=== PATIENT | female | born 1980 | race Caucasian/White ===

== ENCOUNTER → 2016-08-24 | Outpatient (CLI) | payer OTHER ==
[~2016-08-24] MED LIST: ASPI-435 PO; CRS/10 PO; GLC850 PO; IBUP-1050 PO; MELO7.5T5 PO
== END | disposition home or self-care (01) ==
LOC: C.LAB 15:27
PROVIDERS: ATTEND Family Medicine
DX: S61.239A Puncture wound without foreign body of unspecified finger without damage to nail, initial encounter (principal); X58.XXXA Exposure to other specified factors, initial encounter

== ENCOUNTER → 2016-12-04 | Day surgery (SDC) | payer OTHER ==
[2016-11-30 15:29] VITALS: BMI 36.0
[~2016-12-04] VITALS: Ht 162.6 cm; Wt 95.5 kg
[~2016-12-04] MED LIST changes: -ASPI-435 PO; -CRS/10 PO; -IBUP-1050 PO; +LIDOCAINE HCL 2% 2 ML VIAL (20MG/ML) ONE; -MELO7.5T5 PO; +MIDAZOLAM HCL 1 MG/ML 2ML VIAL ONE; +ONDANSETRON INJ 2 MG/ML 2 ML VIAL IV PRN; +ONDANSETRON INJ 2 MG/ML 2 ML VIAL ONE; +PROPOFOL IV EMULSION 10 MG/ML 20 ML VIAL IV ONE
[2016-12-04 10:35] VITALS: Ht 162.6 cm; Wt 95.5 kg
--- NOTE | 2016-12-04 11:05 | Endo History and Physical ---
History & Physical Date of Service: Dec 04, 2016. Chief Complaint: abdominal pain and diarrhea Referring Physician: Dr. Bella History of Present Illness The patient presents for colonoscopy today. She has a history of recurrent constipation and diarrhea which is been ongoing for 1-2 years. She denies having any hematochezia but does have her rectal tenderness. Her surgical history is notable for a , cholecystectomy, appendectomy, and tubal ligation. There is no family history of stomach cancer, colon cancer or inflammatory bowel disease. Past Surgical History Hx Cardiac Surgery: No Hx Internal Defibrillator: No Hx Pacemaker: No Hx Abdominal Surgery: Yes (YAEL, LAP APPY, , D&C) Hx of Implantable Prosthesis: No Hx Post-Op Nausea and Vomiting: No Hx Cancer Surgery: Yes (MOHS FOR BCC) Hx Thoracic Surgery: No Hx Orthopedic: Yes (RT KNEE ARTHROSCOPY) Hx Urinary Tract Surgery: No Family History None Social History Smoking Status: Never Smoker Hx Substance Use: No Hx Alcohol Use: No Allergies Coded Allergies: Bacitracin (Unverified Allergy, Intermediate, REDNESS, 12/04/16) Enoxaparin (Verified Allergy, Mild, HIVES AND ITCHING AT INJECTION SITE, ) Sulfa Antibiotics (Verified Allergy, Unknown, PETICHIA, 12/04/16) Current Medications Reported Home Medications Medications Dose Route/Sig Max Daily Dose Days Date Category Metformin HCl 850 Mg Tab 850 Mg PO BID 11/06/14 Reported Vital Signs Weight (Kilograms): 95.45 Height (Feet): 5 Height (Inches): 4 Date Time Temp Pulse Resp B/P (MAP) Pulse Ox O2 Delivery O2 Flow Rate FiO2 12/04/16 10:41 37.1 88 18 133/78 (96) 97 Room Air Physical Exam General Appearance: no apparent distress Abdomen: Inspection & Palpation: soft Assessment and Plan Patient referred for colonoscopy to evaluate left-sided abdominal discomfort and alteration of bowel habits. Based on the history with suspect her symptoms are related to irritable bowel syndrome. We are to perform a colonoscopy today for evaluation of symptoms to determine if she may have evidence of inflammatory bowel disease.
--- NOTE | 2016-12-04 11:40 | GI REPORT ---
Procedure Date: 12/04/2016 11:19 AM Procedure: Colonoscopy Indications: Screening for colorectal malignant neoplasm, Incidental change in bowel habits noted Medicines: Monitored Anesthesia Care Complications: No immediate complications. Estimated blood loss: Minimal. Estimated Blood Loss: Estimated blood loss was minimal. Procedure: Pre-Anesthesia Assessment: - Prior to the procedure, a History and Physical was performed, and patient medications, allergies and sensitivities were reviewed. The patient's tolerance of previous anesthesia was reviewed. - The risks and benefits of the procedure and the sedation options and risks were discussed with the patient. All questions were answered and informed consent was obtained. - Patient identification and proposed procedure were verified prior to the procedure by the physician, the nurse and the systems analyst developer. The procedure was verified in the procedure room. - Pre-procedure physical examination revealed no contraindications to sedation. - ASA Grade Assessment: II - A patient with mild systemic disease. - After reviewing the risks and benefits, the patient was deemed in satisfactory condition to undergo the procedure. - The anesthesia plan was to use monitored anesthesia care (MAC). - Immediately prior to administration of medications, the patient was re-assessed for adequacy to receive sedatives. - The heart rate, respiratory rate, oxygen saturations, blood pressure, adequacy of pulmonary ventilation, and response to care were monitored throughout the procedure. - The physical status of the patient was re-assessed after the procedure. After I obtained informed consent, the scope was passed under direct vision. Throughout the procedure, the patient's blood pressure, pulse, and oxygen saturations were monitored continuously. The Scope was introduced through the anus and advanced to the terminal ileum. The colonoscopy was performed without difficulty. The patient tolerated the procedure well. The quality of the bowel preparation was good. Findings: The perianal and digital rectal examinations were normal. Pertinent negatives include normal sphincter tone. The terminal ileum appeared normal. Normal mucosa was found in the entire colon. Fluid aspiration was performed through the scope suction channel. Sample(s) were sent for bacterial cultures, Clostridium difficile and ova and parasites. Biopsies for histology were taken with a cold forceps from the entire colon for evaluation of microscopic colitis. Estimated blood loss was minimal. Internal hemorrhoids were found during retroflexion. The hemorrhoids were mild. The exam was otherwise without abnormality. Impression: - The examined portion of the ileum was normal. - Normal mucosa in the entire examined colon. Fluid aspiration performed. Biopsied. - Internal hemorrhoids. - The examination was otherwise normal. Recommendation: - Discharge patient to home (ambulatory). - Advance diet as tolerated today. - Repeat colonoscopy age 49 for screening purposes. - Symptoms likely related to IBS or perhaps Metformin. - Try Florastor 250 mg twice daily. - If symptoms persist would suggest stopping Metformin Buzz Arguelles D.O. Buzz Arguelles, 12/04/2016 11:40:06 AM This report has been signed electronically. Note Initiated On: 12/04/2016 11:19 AM I attest to the content of the Intraoperative Record and orders documented therein, exceptions below
--- NOTE | 2016-12-04 11:42 | Discharge Instructions ---
Endoscopy Patient Instructions Date / Procedure(s) Performed Dec 04, 2016. Colonoscopy Allergy Information Coded Allergies: Bacitracin (Unverified Allergy, Intermediate, REDNESS, 12/04/16) Enoxaparin (Verified Allergy, Mild, HIVES AND ITCHING AT INJECTION SITE, ) Sulfa Antibiotics (Verified Allergy, Unknown, PETICHIA, 12/04/16) Discharge Date / Findings Dec 04, 2016. Internal hemorrhoids Normal-appearing colonic mucosa Medication Instructions Reported Home Medications Medications Dose Route/Sig Max Daily Dose Days Date Category Metformin HCl 850 Mg Tab 850 Mg PO BID 11/06/14 Reported Provider Instructions Activity Restrictions - No exercising or heavy lifting for 24 hours. - Do not drink alcohol the day of the procedure. - Do not drive a car or operate machinery until the day after the procedure. - Do not make any important decisions or sign important papers in 24 hours after the procedure. Following Day: - Return to full activity which may include returning to work/school. Diet Start your diet with liquids and light foods (jello, soup, juice, toast). Then eat your usual diet if not nauseated. Treatment For Common After Affects For mild abdominal pain, bloating, or excessive gas: - Rest - Eat lightly - Lie on right side Follow-Up Information Follow-up with Dr. Bella as scheduled Try Floraster twice daily for 6-8 weeks If symptoms persist would consider stopping metformin Anesthesia Information What You Should Know You have had a procedure that required some medicine to reduce anxiety and discomfort. This treatment is called moderate sedation. After receiving the treatment, you may be sleepy, but you will be able to breathe on your own. The effects of the treatment may last for several hours. Follow these instructions along with Activity/Diet recommendations noted above: * Do NOT do anything where dizziness or clumsiness would be dangerous. * Rest quietly at home today, then you can be up and about tomorrow. * Have a responsible person stay with you the rest of today. * You may have had an I.V. today. If so, you may take the dressing off later today. Recommendations Call your doctor if: * Trouble breathing * Continuous vomiting for more than 24 hours * Temperature above 101 degrees * Severe abdominal pain or bloating * Pain not relieved by pain medicine ordered * There is increased drainage or redness from any incision * A large amount of rectal bleeding greater than 2-3 tablespoons. (If you had a polyp/s removed or have hemorrhoids, a small amount of blood - from the rectum is to be expected.) * You have any unanswered questions or concerns. IN THE EVENT OF A SERIOUS EMERGENCY, GO TO THE NEAREST EMERGENCY ROOM Your discharge instructions were prepared by provider Buzz Arguelles. Patient Instructions Signature Page Lizbeth Dev Patient (or Guardian) Signature/Date: I have read and understand the instructions given to me by my caregivers. Caregiver/RN/Doctor Signature/Date: The above-named patient and/or guardian has received patient instructions on this date. + Original Patient Signature Page (only) stays with chart. Please make copy for patient.
--- NOTE | 2016-12-04 12:00 | Anesthesiology Progress Note ---
Anesthesia Post Op Note Date & Time Dec 04, 2016 at 12:00 Vital Signs Pain Intensity: 0 Vital Signs Past 12 Hours Date Time Temp Pulse Resp B/P (MAP) Pulse Ox O2 Delivery O2 Flow Rate FiO2 12/04/16 11:53 82 18 135/99 (111) 99 Room Air 12/04/16 11:38 88 18 108/62 (77) 98 Room Air 12/04/16 10:41 37.1 88 18 133/78 (96) 97 Room Air Notes Mental Status: alert / awake / arousable, participated in evaluation Pt Amnestic to Procedure: Yes Nausea / Vomiting: adequately controlled Pain: adequately controlled Airway Patency, RR, SpO2: stable & adequate BP & HR: stable & adequate Hydration State: stable & adequate Anesthetic Complications: no major complications apparent
[2016-12-04 12:10] VITALS: BP 136/89; PULSE 85; O2SAT 99
[2016-12-08 14:41] LABS: CRYPTOSPORIDIUM AG TC 37213 NOT DETECTED (NOT DETECTED); ISOSPORA+CYCLOSPORA NOT DETECTED (NOT DETECTED); O&P GIARDIA AG NOT DETECTED (NOT DETECTED)
== END | disposition home or self-care (01) ==
LOC: C.GI 10:16
PROVIDERS: ATTEND Internal Medicine Gastroenterology
DX: Z12.11 Encounter for screening for malignant neoplasm of colon (principal); R19.7 Diarrhea, unspecified; R19.4 Change in bowel habit; K64.8 Other hemorrhoids; K63.89 Other specified diseases of intestine

== ENCOUNTER → 2017-03-05 | Outpatient (CLI) | payer OTHER ==
[~2017-03-05] MED LIST changes: -LIDOCAINE HCL 2% 2 ML VIAL (20MG/ML) ONE; -MIDAZOLAM HCL 1 MG/ML 2ML VIAL ONE; -ONDANSETRON INJ 2 MG/ML 2 ML VIAL IV PRN; -ONDANSETRON INJ 2 MG/ML 2 ML VIAL ONE; -PROPOFOL IV EMULSION 10 MG/ML 20 ML VIAL IV ONE
[2017-03-09 07:35] LABS: HEPATITIS C RNA TMA QUAL Not detected
== END | disposition home or self-care (01) ==
LOC: C.LAB 17:31
PROVIDERS: ATTEND Family Medicine
DX: S61.239A Puncture wound without foreign body of unspecified finger without damage to nail, initial encounter (principal); X58.XXXA Exposure to other specified factors, initial encounter; S69.91XD Unspecified injury of right wrist, hand and finger(s), subsequent encounter; X58.XXXD Exposure to other specified factors, subsequent encounter

== ENCOUNTER 2017-05-21 16:02 | Emergency (ER) | payer OTHER ==
[~2017-05-21] VITALS: Ht 162.6 cm; Wt 101.4 kg
[~2017-05-21 16:02] MED LIST changes: -GLC850 PO; +METF850T10 PO
[2017-05-21 16:27] VITALS: Ht 162.6 cm; Wt 101.4 kg
--- NOTE | 2017-05-21 17:13 | DIAGNOSTIC IMAGING REPORT ---
RIGHT THUMB 3 VIEWS HISTORY: metal FB right thumb - metal suture from OR COMPARISON: None. FINDINGS: There is no fracture or dislocation. Soft tissues are unremarkable. No radiopaque foreign bodies. IMPRESSION: No radiopaque foreign bodies within the thumb. Electronically signed by: Rodolfo Chandler M.D. 05/21/2017 5:12 PM Dictated Date/Time: 05/21/2017 5:11 PM
--- NOTE | 2017-05-21 17:27 | EMERGENCY ROOM VISIT NOTE ---
ED Visit Note First contact with patient: 16:33 CHIEF COMPLAINT: Finger laceration HISTORY OF PRESENT ILLNESS: This 36-year-old [id number] female patient presents to the emergency department approximately 4 hours after puncturing the medial aspect of the right thumb at work. The patient is an OR nurse, and was scrubbed in on a spine surgery. Dr. Montaño, the patient's attending, was removing metal sutures from a previous surgery. The patient believes that when she grabbed some sort of object, a piece of the metal suture pierced her glove and punctured her thumb. She states she immediately noticed the pain, and is now experiencing a foreign body sensation in the medial aspect of the right thumb. The bleeding has stopped. Denies weakness or numbness of the finger. The patient has full range of motion of the fingers. The patient rates the pain as minimal and 2/10 only with palpation. The patient denies any other injuries. The patient's tetanus shot is up to date. She did change gloves and clean with wound immediately with soap and water after the incident. REVIEW OF SYSTEMS: A 6 system review of systems was completed with positives and pertinent negatives listed in the HPI. ALLERGIES: Sulfa, Lovenox MEDICATIONS: Probiotic PMH: None SOCIAL HISTORY: The patient lives locally with family. She denies drug, alcohol , tobacco use. PHYSICAL EXAM: Vital Signs: Reviewed Nurse's notes, vital signs stable. GENERAL : This is a 36-year-old white female, in no acute distress, well developed, well nourished. SKIN: There is no obvious puncture wound or active bleeding on the medial aspect of the right thumb. The patient does report a foreign body sensation in that area, but I am unable to note the FB on palpation. Extension and flexion of the finger is full and strong. Full range of motion of the wrist and other fingers. Capillary refill less than 2 seconds. Normal sensation to light and sharp touch. RADIOLOGY: RIGHT THUMB 3 VIEWS HISTORY: metal FB right thumb - metal suture from OR COMPARISON: None. FINDINGS: There is no fracture or dislocation. Soft tissues are unremarkable. No radiopaque foreign bodies. IMPRESSION: No radiopaque foreign bodies within the thumb. Electronically signed by: Rodolfo Chandler M.D. 05/21/2017 5:12 PM Dictated Date/Time: 05/21/2017 5:11 PM EMERGENCY DEPARTMENT COURSE: I examined the patient. I contacted [employer] and discussed the case with them. This was deemed a significant exposure , so labs were drawn. behaview paperwork completed. X-ray was performed and reviewed by myself and radiologist as above. No obvious radiopaque foreign body noted on x-ray. I discussed the findings with the patient and reviewed the x-ray with her at bedside. The patient was given a Tdap booster. The patient was discharged home in good condition. I attest that I have personally reviewed the patient's current medication list. Patient was found to have normal blood pressure on screening and does not require follow-up. Differential diagnosis: Laceration, puncture wound, blood-borne pathogen exposure, fracture, contusion, strain or sprain, and others DIAGNOSIS: Needlestick injury, blood exposure Problem List Medical Problems: (1) Diabetes mellitus Status: Chronic Surgical Problems: (1) delivery delivered Status: Resolved (2) H/O section Status: Resolved (3) History of appendectomy Status: Resolved (4) Hx of appendectomy Status: Resolved (5) Hx of cholecystectomy Status: Resolved (6) Hx of dilation and curettage Status: Resolved (7) Hx of tubal ligation Status: Resolved (8) S/P tonsillectomy and adenoidectomy Status: Resolved Current/Historical Medications Scheduled Probiotic Product (Align), 4 MG PO DAILY Allergies Coded Allergies: Bacitracin (Verified Allergy, Intermediate, REDNESS, 05/21/17) Enoxaparin (Verified Allergy, Mild, HIVES AND ITCHING AT INJECTION SITE, ) Sulfa Antibiotics (Verified Allergy, Unknown, PETICHIA, 05/21/17) Vital Signs Date Time Temp Pulse Resp B/P (MAP) Pulse Ox O2 Delivery O2 Flow Rate FiO2 05/21/17 17:49 36.8 99 20 160/94 96 05/21/17 16:27 36.8 99 20 160/94 96 Room Air Medications Administered Medications (Trade) Dose Ordered Sig/Micah Route Start Time Stop Time Status Last Admin Dose Admin Diphtheria/ Pertussis/Tetanus Vacc (Adacel Inj) 0.5 ml ONCE ONCE IM. 05/21/17 17:30 05/21/17 17:31 DC 05/21/17 17:38 0.5 ML Departure Information Impression Primary Impression: Needle stick injury Additional Impression: Exposure to blood or body fluid Dispostion Home / Self-Care Condition GOOD Referrals Jojo Bella D.O. (PCP) Lala You Patient Instructions ED Body Fluid Exp HC Worker, Justine Numerate Cece [employer] Additional Instructions He was seen in the emergency department today for possible foreign body in the right thumb. As discussed, x-ray of the thumb did not show any signs of foreign body. Please keep the wound clean and dry with soap and water. Ibuprofen(Motrin, Advil) may be used for fever or pain. Use 400mg every six hours as needed. Take with food. Avoid using more than 2400mg in a 24 hour period. Do not use 2400mg per day for more than three consecutive days without physician direction. Prolonged inappropriate use can lead to stomach upset or ulcers. (AND/OR) Acetaminophen(Tylenol) may be used for fever or pain. Use 500mg every six hours as needed. Avoid using more than 3000mg in a 24 hour period. Follow-up with employee health as recommended. Return to the ED for worsening pain, redness, swelling, purulent drainage, fever , or other concerning symptoms. Problem Qualifiers
[2017-05-21] MEDS ORDERED: MISC4CAP PO (17:29)
[2017-05-21] MEDS ORDERED: DIPHTHERIA/TETANUS/PERTUSSIS 0.5 ML SYR/VIAL IM. ONE (17:30)
[2017-05-21 17:49] VITALS: BP 160/94; PULSE 99; TEMP 36.8; O2SAT 96
== END 2017-05-21 17:49 | disposition home or self-care (01) ==
LOC: C.EDB 16:02 → C.EDD 17:49
DX: S61.031A Puncture wound without foreign body of right thumb without damage to nail, initial encounter (principal); W46.1XXA Contact with contaminated hypodermic needle, initial encounter; Z77.21 Contact with and (suspected) exposure to potentially hazardous body fluids; Y92.234 Operating room of hospital as the place of occurrence of the external cause

== ENCOUNTER 2017-07-12 11:44 | Emergency (ER) | payer OTHER ==
[~2017-07-12] VITALS: Ht 162.6 cm; Wt 100.5 kg
[~2017-07-12 11:44] MED LIST changes: -METF850T10 PO; +MISC4CAP PO
[2017-07-12 12:04] VITALS: TEMP 36.6; Ht 162.6 cm; Wt 100.5 kg
--- NOTE | 2017-07-12 12:58 | EMERGENCY ROOM VISIT NOTE ---
History First contact with patient: 12:14 Chief Complaint: OTHER COMPLAINT Stated Complaint: SPRAYED IN FACE WITH BAG OF PTS FLUID History of Present Illness The patient is a 36 year old female who presents to the Emergency Room from the operating room with complaints of "spread and face with back of patient's fluid ". The patient states that earlier today around 10:58 AM she was working in the operating room when a bag of garbage can attached to an irrigation also which was inside the patient's shoulder for surgery sprayed her in the face, mouth and maybe even her eyes. She states that she immediately rinsed these regions. Source patient is known and this information was relayed to [employer] health. She notes that it is possible the nozzle was contaminated with blood/ synovial fluid from the patient. She was recommended to come here for evaluation. Tetanus is up-to-date. Review of Systems A complete 6-point Review of Systems was discussed with the patient, with pertinent positives and negatives listed in the History of Present Illness. All remaining Review of Systems questions can be considered negative unless otherwise specified. Past Medical/Surgical History Medical Problems: (1) Diabetes mellitus Surgical Problems: (1) delivery delivered (2) H/O section (3) History of appendectomy (4) Hx of appendectomy (5) Hx of cholecystectomy (6) Hx of dilation and curettage (7) Hx of tubal ligation (8) S/P tonsillectomy and adenoidectomy Family History Diabetes mellitus Hypertension Social History Smoking Status: Never Smoker Alcohol Use: none Marital Status: Housing Status: lives with family Occupation Status: employed Current/Historical Medications Scheduled Probiotic Product (Align), 4 MG PO DAILY Physical Exam Vital Signs Date Time Temp Pulse Resp B/P (MAP) Pulse Ox O2 Delivery O2 Flow Rate FiO2 07/12/17 13:28 90 18 151/104 97 07/12/17 12:04 36.6 92 18 139/86 95 Room Air Physical Exam VITAL SIGNS - Vital signs and nursing notes were reviewed. Stable. GENERAL -36-year-old female appearing her stated age who is in no acute distress. Communicates well with provider and answers questions appropriately. SKIN - Without rashes. No meningeal or petechial rash. No open lesions or lacerations to the face noted. Medical Decision & Procedures Medical Decision Patient was seen and evaluated as above in room D6. Review was performed of nursing notes and vital signs. After obtaining a thorough history and physical examination I did declare the exposure significant secondary to the possibility of blood/synovial fluid splashing her in the mouth and possibly her eyes. She was splashed in the face with potentially contaminated fluids from the patient' s blood/synovial fluid around 10:58 AM today. Source patient was identified and this information was then relayed to Ms. Lazrao Villa of [employer] health. Source patient as well as the exposed employee underwent baseline lab testing. Patient did complete/sign all appropriate paperwork. She was discharged to follow-up with employee health as well as occupational health. I did discuss with her benefit versus risk of initiating HIV prophylaxis at this time and decision was made to refrain until results are made available later today and in the event that they were not able to be resulted she would return for initiation of prophylaxis. The patient was educated upon management, had questions answered prior to discharge, and was discharged home in good condition. In the evaluation and treatment of this patient the following differential diagnoses were entertained: Significant exposure, nonsignificant exposure, among others. Impression Primary Impression: Exposure to blood or body fluid Departure Information Dispostion Home / Self-Care Condition GOOD Referrals Jojo Bella D.O. (PCP) Patient Instructions My [facility] Additional Instructions You were seen in the emergency department for exposure to body fluids while in the operating room. I do recommend at this time we deem this is as a significant exposure, and have drawn your as well as the source patient's baseline labs. You will be notified by employee health regarding the status/ results of the testing. Please call employee health/occupational health to schedule follow-up regarding your work-related injury. Please return with any new/concerning symptoms. Please call back here at [phone] for testing results if they do not call you by later this evening.
[2017-07-12 13:28] VITALS: BP 151/104; PULSE 90; O2SAT 97
== END 2017-07-12 13:28 | disposition home or self-care (01) ==
LOC: C.EDB 11:46 → C.EDD 13:28
DX: Z77.21 Contact with and (suspected) exposure to potentially hazardous body fluids (principal); E11.9 Type 2 diabetes mellitus without complications; Z83.3 Family history of diabetes mellitus; Z82.49 Family history of ischemic heart disease and other diseases of the circulatory system

== ENCOUNTER → 2017-11-02 | Outpatient (CLI) | payer OTHER | END | disposition home or self-care (01) | LOC: C.RDSM 15:00 | PROVIDERS: ATTEND Orthopaedic Surgery | DX: M79.606 Pain in leg, unspecified (principal); M25.561 Pain in right knee ==

== ENCOUNTER → 2017-11-13 | Outpatient (CLI) | payer OTHER ==
--- NOTE | 2017-11-13 16:39 | DIAGNOSTIC IMAGING REPORT ---
MRI OF THE RIGHT KNEE WITHOUT CONTRAST CLINICAL HISTORY: Effusion of right knee. Right knee pain and swelling following recent fall. Previous surgery. COMPARISON STUDY: MRI of the right knee December 16, 2015 and right knee radiographs November 02, 2017. TECHNIQUE: Utilizing a 1.5 Lynn magnet and dedicated coil, multiplanar, multiecho imaging of the right knee was performed without intravenous or intraarticular contrast. FINDINGS: Alignment of the right knee is anatomic. A trace right knee joint effusion has significantly decreased in size since radiographs of November 02, 2017. Note is made of marked edema within the inferior aspect of the patellar with linear hypointense T1 signal. This favors a nondisplaced fracture. There is moderate marrow edema in the anterior aspect of the proximal tibia without associated fracture which suggests a contusion. Extensor mechanism is intact. There is mild edema anterior to the patellar tendon and the tibial tubercle. Cruciate and collateral ligaments are intact. Note is made of moderate chondrosis within the medial femoral condyle which were shown on previous MRI of December 16, 2015. The medial meniscal tear shown on previous exam is less conspicuous on this exam. There is no evidence for an acute meniscal tear. No lateral meniscal tear is present. There is mild chondrosis within the patellofemoral compartment. IMPRESSION: 1. Marked marrow edema within the inferior aspect of the patella which reflects a contusion with suspected underlying nondisplaced patellar fracture. Suspected contusion of the anterior proximal right tibia. No proximal tibial fracture. 2. Intact cruciate and collateral ligaments. 3. Trace right knee joint effusion which has markedly decreased in size since radiographs of November 02, 2017. 4. Moderate chondrosis within the medial femoral condyle which was shown on previous MRI. Mild chondrosis within the patellofemoral compartment. 5. Decrease conspicuity of the medial meniscal tear shown on previous MRI. Electronically signed by: Jose Ramon Larkin M.D. 11/13/2017 4:38 PM Dictated Date/Time: 11/13/2017 4:26 PM
== END | disposition home or self-care (01) ==
LOC: C.MRI 14:59
PROVIDERS: ATTEND Orthopaedic Surgery
DX: M25.461 Effusion, right knee (principal)

== ENCOUNTER 2018-07-12 08:25 | Observation (INO) ==
--- NOTE | 2018-06-20 14:47 | PAT Medication Instructions ---
Medication Instructions Date of Service June 20, 2018 Home Medications acetaminophen [Tylenol Extra 1 dose PO UD PRN ibuprofen [Motrin IB] 600 mg PO UD PRN levothyroxine [Synthroid] 25 mcg PO QAM norethindrone acetate 1 tab PO BID ranitidine HCl [Zantac] 150 mg PO UD PRN rosuvastatin [Crestor] 10 mg PO DAILY ASK your surgeon for instructions ibuprofen [Motrin IB] 600 mg PO UD PRN norethindrone acetate 1 tab PO BID DO NOT take the morning of surgery ranitidine HCl [Zantac] 150 mg PO UD PRN Take morning of surgery With a small sip of water, OTHERWISE NOTHING TO EAT OR DRINK AFTER MIDNIGHT: acetaminophen [Tylenol Extra 1 dose PO UD PRN (okay to take up to 4 hours prior to surgery if needed) levothyroxine [Synthroid] 25 mcg PO QAM rosuvastatin [Crestor] 10 mg PO DAILY Other Notes If you have any questions please call us at [phone] or [phone] or [phone] or [phone]
--- NOTE | 2018-06-20 14:57 | Anesthesiology Consultation ---
Date of Service June 20, 2018 Assessment & Plan (1) Encounter for pre-operative examination: - Check test AM DOS Chart Review Chart Review: Acceptable Risk for Surgery and Patient seen in Pre Admission Testing Teaching & Discussion Pre-Anesthesia Teaching/Discussion Notes: Instructed NPO after midnight before surgery,except medications with 15 cc of water. Medication instructions provided according to the PAT guidelines. History Surgery Operation Date: 07/12/18 09:50 Proposed Procedures p Robotic Total Laparoscopic Hysterectomy - Teri Warner MD Height/Weight Height: 5 ft 4.5 in Weight: 108.1 kg Allergies Allergy/AdvReac Type Severity Reaction Status Date / Time adhesive Allergy Unknown REDNESS/JAROCHO Verified 06/13/18 15:53 H bacitracin Allergy Unknown REDNESS, Verified 06/13/18 15:53 RASH enoxaparin Allergy Unknown HIVES AND Verified 06/13/18 15:53 ITCHING AT INJECTION SITE Sulfa (Sulfonamide Allergy Unknown "PETECHIA" Verified 06/13/18 15:53 Antibiotics) BANDAIDS Allergy Unknown REDNESS/JAROCHO Uncoded 06/13/18 15:53 H Medications Home Medications Medication Instructions Recorded Confirmed Last Taken acetaminophen [Tylenol Extra 1 dose PO UD PRN 06/13/18 06/13/18 Unknown Strength] ibuprofen [Motrin IB] 600 mg PO UD PRN 06/13/18 06/13/18 Unknown levothyroxine [Synthroid] 25 mcg PO QAM 06/13/18 06/13/18 06/13/18 norethindrone acetate 1 tab PO BID 06/13/18 06/13/18 06/13/18 ranitidine HCl [Zantac] 150 mg PO UD PRN 06/13/18 06/13/18 Unknown rosuvastatin [Crestor] 10 mg PO DAILY 06/13/18 06/13/18 Unknown Past Medical History Medical History Acid reflux Fibroids History of MTHFR mutation FOUND DURING WORKUP AFTER OF MULTIPLE MISCARRIAGES History of high blood pressure HX MEDICATION; BP CONTROLLED SINCE DISCONTINUE History of palpitations History of skin cancer BCC S/P MOHS (CHEST/EAR) Hyperlipidemia Hypothyroid Insulin resistance Knee pain S/P LEFT STEROID INJECTION (06/17/18) Menorrhagia Morbid obesity Past Surgical History Surgical History History of D&C History of appendectomy History of section History of colonoscopy History of excision of mass WIDE EXCISION OF RIGHT FOREARM History of laparoscopic cholecystectomy History of meniscectomy of right knee History of skin cancer S/P MOHS (CHEST/EAR) History of tonsillectomy and adenoidectomy History of tubal ligation History of wisdom tooth extraction Past Anesthesia History No Hx of Anesthesia Complications (EXCEPT KARTHIKEYAN) History of PONV Yes (NAUSEA) Motion Sickness Screening History of Motion Sickness: No Social History Smoking Status: Never smoker Do You Dip or Chew Tobacco: No Hx Alcohol Use: Yes Alcohol type: wine alcohol intake frequency: holidays/special occasions only Hx Substance Use: No substance use type: does not use Exercise / Class Metabolic Activity II 4-5 Yardwork/Stairs/Walk up hill Review of Systems Patient denies chest pain, shortness of breath, dyspnea on exertion, cough, wheezing, palpitations. Physical Exam Vital Signs VITALS BP 125/82 P 79 TEMP 98.5 SP02 98%RA RESP 18 PHYSICAL Full neck and c-spine range of motion. Full TMJ range of motion. TMD 3.5 finger breaths Mallampati Score 1 Dentition: intact Lungs: clear throughout to auscultation Cardiac: regular rate and rhythm, no murmurs noted Spine: normal Extremities: no edema Testing Electrocardiogram Date: 06/20/18 Findings: + NSR @ (67) Laboratory Results 06/20/18 15:15 06/20/18 15:15 Blood Type A Positive 06/20/18 15:15 Antibody Screen NEGATIVE 06/20/18 15:15
[2018-06-20 16:03] LABS: Basophils # (auto) 0.04 K/uL (0-0.2); Basophils % (auto) 0.4 %; Eosinophils # (auto) 0.24 K/uL (0-0.5); Eosinophils % (auto) 2.2 %; Hematocrit (blood only) 41.5 % (37-47); Hemoglobin 13.5 g/dL (12.0-16.0); Immature Granulocytes # (auto) 0.03 K/uL (0.00-0.02); Immature Granulocytes % (auto) 0.3 %; Lymphocytes # (auto) 2.69 K/uL (1.2-3.4); Lymphocytes % (auto) 24.8 %; Mean Corpuscular Hgb Conc 32.5 g/dL (32-36); Mean Corpuscular Volume 90.6 fL (80-100); Mean Platelet Volume 10.7 fL (7.4-10.4); Monocytes # (auto) 0.78 K/uL (0.11-0.59); Monocytes % (auto) 7.2 %; Neutrophils # (auto) 7.06 K/uL (1.4-6.5); Neutrophils % (auto) 65.1 %; Platelet Count 301 K/uL (130-400); RDW Coefficient of Variation 14.6 % (11.5-14.5); RDW Standard Deviation 48.6 fL (36.4-46.3); Red Blood Count 4.58 M/uL (4.2-5.4); White Blood Count 10.84 K/uL (4.8-10.8)
[2018-06-20 16:11] LABS: BUN Creatinine Ratio 13.6 (10-20); Calcium 8.6 mg/dl (8.5-10.1); Creatinine Clr Calc Pharmacy 101.6 ml/min; Est GFR (African American) 92.8; Potassium 4.1 mmol/L (3.5-5.1)
[~2018-07-12 08:25] MED LIST changes: +CEFAZOLIN 2000MG 2,000 MG/15 ML SYR IV SCH; +LACTATED RINGER'S 1,000 ML IV SCH; +LR 15ML/HR IV SCH; -MISC4CAP PO
[2018-07-12] MEDS ORDERED: GLYCOPYRROLATE 0.2 MG/ML VIAL ONE (08:55)
[2018-07-12] MEDS ORDERED: SUCCINYLCHOLINE CHLORIDE 20 MG/ML 10 ML VIAL ONE (08:55)
[2018-07-12] MEDS ORDERED: ONDANSETRON INJ 2 MG/ML 2 ML VIAL ONE (08:55)
[2018-07-12] MEDS ORDERED: ePHEDrine sulfate 50 MG/ML AMP ONE (08:55)
[2018-07-12] MEDS ORDERED: fentaNYL citrate 100 MCG/2 ML VIAL ONE ×2 (08:55)
[2018-07-12] MEDS ORDERED: PROPOFOL IV EMULSION 10 MG/ML 20 ML VIAL IV ONE ×2 (08:55→11:15)
[2018-07-12] MEDS ORDERED: MIDAZOLAM HCL 1 MG/ML 2ML VIAL ONE ×2 (08:55)
[2018-07-12] MEDS ORDERED: DEXAMETHASONE SOD INJ 4 MG/ML VIAL ONE ×2 (08:55→08:57)
[2018-07-12] MEDS ORDERED: NEOSTIGMINE METHYLSULFATE 5 MG/5 ML SYR ONE (08:55)
[2018-07-12] MEDS ORDERED: LIDOCAINE HCL 2% 2 ML VIAL/AMP(20MG/ML) INFIL ONE (08:55)
[2018-07-12] MEDS ORDERED: PHENYLEPHRINE HCL 10 MG/ML VIAL ONE (08:55)
[2018-07-12] MEDS ORDERED: HYDROmorphone INJ 2 MG/ML SYR/VIAL ONE (08:56)
[2018-07-12] MEDS ORDERED: METOCLOPRAMIDE HCL INJ 5 MG/ML 2 ML VIAL ONE (08:57)
[2018-07-12] MEDS ORDERED: raNITIdine HCl 25 MG/ML VIAL ONE (08:57)
--- NOTE | 2018-07-12 09:09 | History & Physical Bridge Note ---
Date of Service July 12, 2018 History & Physical Bridge Note I have examined the patient, reviewed the History & Physical and in the interval since the performance of the History & Physical I have noted the following changes of clinical significance: no changes noted
[2018-07-12] MEDS ORDERED: HEPARIN SOD 5,000 UNIT/0.5 ML VIAL ONE (09:13)
[2018-07-12] MEDS ORDERED: IBUPROFEN 600 MG TAB PO PRN (09:14)
[2018-07-12] MEDS ORDERED: ACETAMINOPHEN 325 MG TAB PO PRN (09:14)
[2018-07-12] MEDS ORDERED: MEPERIDINE HCL 25 MG/ML CARP IV PRN (09:14)
[2018-07-12] MEDS ORDERED: MEPERIDINE HCL 50 MG/ML CARP IV PRN (09:14)
[2018-07-12] MEDS ORDERED: PROMETHAZINE HCL 12.5 MG in SODIUM CHLORIDE 0.9% 50 ML IV PRN (09:14)
[2018-07-12] MEDS ORDERED: ONDANSETRON INJ 2 MG/ML 2 ML VIAL IV PRN ×2 (09:14→09:43)
[2018-07-12] MEDS ORDERED: PROMETHAZINE HCL 25 MG in SODIUM CHLORIDE 0.9% 50 ML IV PRN (09:14)
[2018-07-12] MEDS ORDERED: SIMETHICONE 80 MG CHEW PO PRN (09:14)
[2018-07-12] MEDS ORDERED: OXYCODONE/ACETAMINOPHEN 5mg/325mg TAB PO PRN ×2 (09:14)
[2018-07-12] MEDS ORDERED: IBUPROFEN 200 MG TAB PO PRN (09:18)
[2018-07-12] MEDS ORDERED: BUPIVACAINE 0.5 % 5 MG/1 ML MPF 30ML VIAL ONE (09:36)
[2018-07-12] MEDS ORDERED: METHYLENE BLUE 0.5% 10 ML VIAL ONE (09:36)
[2018-07-12] MEDS ORDERED: DEXAMETHASONE SOD INJ 4 MG/ML VIAL IV PRN (09:43)
[2018-07-12] MEDS ORDERED: HYDROmorphone INJ 2 MG/ML SYR/VIAL IV PRN (09:43)
[2018-07-12] MEDS ORDERED: ATROPINE SULFATE 0.1 MG/ML 10ML SYR IV PRN (09:43)
[2018-07-12] MEDS ORDERED: ePHEDrine sulfate 50 MG/ML AMP IV PRN (09:43)
[2018-07-12] MEDS ORDERED: KETOROLAC 30 MG/ML VIAL IV PRN (09:43)
[2018-07-12] MEDS ORDERED: SCOPOLAMINE 1.5 MG TDSY ONE (09:49)
[2018-07-12 10:28] LABS: Hematocrit (blood only) 38.1 % (37-47); Hemoglobin 12.6 g/dL (12.0-16.0)
[2018-07-12] MEDS ORDERED: TISSEEL FIBRIN SEALANT 10ML TOP ONE (11:01)
[2018-07-12] MEDS ORDERED: ROCURONIUM BROMIDE 10 MG/ML 5 ML VIAL ONE ×2 (11:10→11:18)
[2018-07-12] MEDS ORDERED: FUROSEMIDE 10 MG/ML 10 ML VIAL IV ONE (11:53)
[2018-07-12] MEDS ORDERED: IOTHALAMATE MEGLUMINE II 17.2% 250 ML VIAL ONE (12:21)
--- NOTE | 2018-07-12 12:56 | Post Operative Brief Note ---
Immediate Post Op Note v1 Date of Surgery July 12, 2018 Pre & Post Diagnosis Operation Date: 07/12/18 09:50 Pre-Op Diagnosis: Menorrhagia, Irregular menses, fibroids Post-Op Diagnosis: Menorrhagia, Irregular menses, fibroids Procedure Operation Date: 07/12/18 09:50 Actual Procedures p Robotic Total Laparoscopic Hysterectomy, bilateral salpingectomy, cystoscopy - Teri Warner MD Surgeon Teri Warner MD Crime Scene Analyst Ying Estimated Blood Loss 40 Findings Consistent with Post-Op Diagnosis Specimens Uterus, bilateral tubes, cervix Anesthesia Type General Complications none Disposition Accompanied Patient To Recovery: Yes Disposition: Recovery Room
--- NOTE | 2018-07-12 12:57 | Operative Report ---
Post Operative Report Pre & Post Diagnosis Operation Date: 07/12/18 09:50 Pre-Op Diagnosis: Menorrhagia, Irregular menses Post-Op Diagnosis: Menorrhagia, Irregular menses Procedure Operation Date: 07/12/18 09:50 Actual Procedures p Robotic Total Laparoscopic Hysterectomy, bilateral salpingectomy, cystoscopy - Teri Warner MD Surgeon Mukesh Salmeron, II, DO Rubber Process Hand None Estimated Blood Loss 0 Findings Consistent with Post-Op Diagnosis Bilateral efflux of urine from UO. Easily placement of 5 fr catheter on right without issue. Good drip of urine received after advancing catheter into right renal pelvis. Specimens None Drains None Anesthesia Type General Complications none Indications Intraoperative consultation due to question concerning ureters. Due to urgent need, consent considered emergent secondary to need. Description of Procedure Patient was consented for the gynecologic procedure which was completed by Dr. Warner. The patient was scoped by Dr. Warner and there was some concern and urology was consulted intraoperatively. Patient had been under general anesthesia and was in the dorsal lithotomy position. Patient had been prepped and draped in the regular sterile fashion prior to my arrival. A time out was completed at the start of the procedure, again prior to my arrival. A 30degree Cystoscope was placed into the bladder and the entire bladder was examined. The UO's were identified. Free efflux of urine was appreciated on the left. The right was cannulized with a catheter. This was easily advanced. No issue or narrowing or difficulty. Urine freely drained from the catheter with a very slow drip once it was advanced to the renal pelvis. Urine was also seen escaping around the catheter and appeared to drain well. No concerns for issues related to the ureter. A stent was discussed as an option but due to the ease of catheter placement and the now efflux of urine from the right, this was decided against. The scope was removed. The patient was cleaned and care was transferred to Dr. Warner and the primary team in stable condition having tolerated the cystoscopic procedure well with no complications. I was present and participated in all aspects of this procedure as listed. I attest to the content of the Intraoperative Record and any orders documented therein. Any exceptions are noted below.
--- NOTE | 2018-07-12 12:59 | Operative Report ---
Post Operative Report Pre & Post Diagnosis Operation Date: 07/12/18 09:50 Pre-Op Diagnosis: Menorrhagia, Irregular menses Post-Op Diagnosis: Menorrhagia, Irregular menses Procedure Operation Date: 07/12/18 09:50 Actual Procedures p Robotic Total Laparoscopic Hysterectomy, bilateral salpingectomy, cystoscopy - Teri Warner MD Surgeon Teri Warner MD Dentist [employer] Ying Estimated Blood Loss 40 Findings Consistent with Post-Op Diagnosis Specimens Uterus, Fallopian Tubes, Cervix Anesthesia Type General Complications none Disposition Accompanied Patient To Recovery: Yes Disposition: Recovery Room Description of Procedure The patient was brought to the operating room and placed on the table in dorsal lithotomy position with yellofin stirrups, prepped and draped in standard sterile fashion, and a hard time out was taken prior to proceeding. The bladder was emptied via placement of can catheter. A [employer] Local uterine manipulator was placed in the usual manner. Attention was then turned to the abdomen where optical entry was made above the umbilicus without complication. The abdomen was insufflated and the patient was placed in steep Trendelenburg. Under direct visualization, right and left lower quadrant ports were placed without complication. Survey of the abdomen revealed uterus with large fundal fibroid, tubes with ligation bilaterally, and normal ovaries. Liver edge normal, appendix absent. The robot was then docked and surgery proceeded with the surgeon at the console. The ureter was identified on each side and traced along its course into the pelvis. Each fallopian tube in turn was elevated, dissected off the mesosalpinx and left attached to the uterine cornu. Each utero-ovarian ligament was ligated and then divided. Each round ligament was ligated and then divided. The anterior leaflets of the broad ligament were dissected to create a bladder flap which was gently mobilized downward below the colpotomy cup ridge. Each uterine artery was skeletonized, ligated, and then divided. Circumferential colpotomy was then completed following the colpotomy cup guide. The cervix, uterus and bilateral tubes were then retrieved en bloc via the vagina, and with bivalving of the uterus from a vaginal approach to ease the process of extraction. The vaginal cuff was then closed using V-Lindsey suture in the typical running non-locked fashion. The needle was retrieved through a trocar, and suction/irrigation was then used to remove any debris and ensure good hemostasis at all working sites. The robot was undocked and abdomen deflated. After administration of IV Methylene Blue dye, cystoscopy was then utilized to examine the bladder dome which was free of suture or injury. The ureteral orifices were observed. A strong jet of blue stained urine was seen from the left UO, however despite good peristalsis, no obvious jet was seen from the R UO. Urology was asked to come to the room, and Dr. Harvey passed a stent easily up the length of the R ureter. He felt no narrowing or resistance, and urine was seen to flow both out of the stent tip and around the stent out the UO. This was felt to represent evidence of ureteral patency and function. The bladder was then drained. The abdominal trocar sites were closed using a UR6 at the umbilical fascia and 4-0 monocryl at each of the skin incisions. A dermabond dressing was applied to each site. A final vaginal exam ensured no materials were present in the vagina and the cuff was intact. The patient was then transferred in stable condition to the recovery room. I attest to the content of the Intraoperative Record and any orders documented therein. Any exceptions are noted below.
[2018-07-12] MEDS: fentaNYL citrate 100 MCG/2 ML VIAL IV PRN ×2 (13:52→13:59)
[2018-07-12] MEDS ORDERED: HYDROmorphone INJ 1 MG/ML SYRINGE ONE (14:58)
--- NOTE | 2018-07-12 15:07 | Anesthesiology Progress Note ---
Date of Service July 12, 2018 Anesthesia Post Procedure Vital Signs Vital Signs: Temp Pulse Pulse Resp BP BP Pulse Ox 07/12/18 14:40 92 H 18 133/68 96 07/12/18 14:25 77 18 129/69 96 07/12/18 14:10 37.0 C 78 18 134/78 95 07/12/18 14:00 71 15 142/79 H 95 07/12/18 13:50 78 18 145/85 H 98 07/12/18 13:40 90 18 152/100 H 98 07/12/18 13:30 86 16 145/96 H 96 07/12/18 13:20 105 H 12 121/86 98 07/12/18 13:11 36.5 C 100 H 15 145/86 H 100 07/12/18 08:50 37.1 C 94 H 16 151/92 H 96 Pain Intensity Lower Abdomen: Pain Intensity: 3 Notes Mental Status: alert / awake / arousable and participated in evaluation Patient Amnestic to Procedure: Yes Nausea / Vomiting: adequately controlled Pain: adequately controlled Airway Patency, RR, SpO2: stable & adequate BP & HR: stable & adequate Hydration State: stable & adequate Anesthetic Complications: no major complications apparent
[2018-07-12 15:22] LABS: Hematocrit (blood only) 41.2 % (37-47); Hemoglobin 13.9 g/dL (12.0-16.0)
[2018-07-12] MEDS ORDERED: LACTATED RINGER'S 1,000 ML IV SCH (15:45)
[2018-07-12 17:20] LABS: Prothrombin Time 10.6 Seconds (9.0-12.0)
[2018-07-12] MEDS ORDERED: HEPARIN SOD 5,000 UNIT/0.5 ML VIAL SQ SCH (21:00)
[2018-07-12] MEDS ORDERED: DOCUSATE SODIUM 100 MG CAP PO SCH ×2 (21:00)
[2018-07-13] MEDS ORDERED: LEVOTHYROXINE SODIUM 25 MCG TABLET PO SCH (06:30)
[2018-07-13] MEDS ORDERED: ROSUVASTATIN CALCIUM 10 MG TAB PO SCH (09:00)
--- NOTE | 2018-07-15 07:24 | Discharge Summary ---
Date of Service July 15, 2018 Admission HPI Per Admitting Provider Lizbeth was admitted for planned TLH with robotic assist, which was performed without complication. See operative report for details. She was discharged home on POD#0 as usual after meeting discharge criteria. She will f/u in 2 and 6 weeks. Discharge Data Procedures Performed Operation Date: 07/12/18 09:50 Actual Procedures p Robotic Total Laparoscopic Hysterectomy, bilateral salpingectomy, - Teri Warner MD s Cystoscopy - Teri Warner MD
== END 2018-07-12 19:27 | disposition home or self-care (01) ==
LOC: 4N 08:25 → ASU 08:25